=== PATIENT | female | born 1945 | race Caucasian/White ===

== ENCOUNTER 2016-05-08 06:22 | Day surgery (SDC) | payer MEDICARE ==
[2016-05-04 08:57] VITALS: BMI 32.3
--- NOTE | 2016-05-07 20:27 | P.HPOB ---
History of Present Illness H&P Date: 05/07/16 Chief Complaint: Postmenopausal bleeding, endometrial thickening This is a 61-year-old female 5 para 4 who presents for dilation and curettage with hysteroscopy secondary to postmenopausal bleeding. She began having some brown light spotting approximate 2 months ago. She denies any cramping or pelvic pain. The symptoms have been occurring normal daily. She denies any preceding event prior to the bleeding starting. She does state is exacerbated by physical activity. She denies any sexual activity. Her pelvic ultrasound showed a uterus measuring 6.3 x 3.3 x 3.8 cm with an endometrial thickness of 1.4 cm. Neither ovary was visualized. Obstetrical history: . History of 4 vaginal deliveries and 1 miscarriage. Gynecologic history: No history of sexually transmitted diseases. Onset of menses was at age 15-16 and menopause was at age 41. She did try was menopausal hormone replacement therapy but stopped it due to bleeding problems. Social history: She is . She denies any sexual activity currently. 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 Review of Systems Constitutional: Denies chills, Denies fever Ears, nose, mouth and throat: Denies headache, Denies sore throat Cardiovascular: Denies chest pain, Denies shortness of breath Respiratory: Denies cough Gastrointestinal: Denies abdominal pain, Denies diarrhea, Denies nausea, Denies vomiting Genitourinary: Reports abnormal vaginal bleeding, Denies pelvic pain Menstruation: Reports postmenopausal Musculoskeletal: Denies myalgias Integumentary: Denies pruritus, Denies rash Neurological: Denies numbness, Denies weakness Endocrine: Denies fatigue, Denies weight change Past Medical History Past Medical History: Hyperlipidemia, Hypertension Additional Past Medical History / Comment(s): post menopausal spotting,US showed uterus wall thickening,allergies causing sinus congestion History of Any Multi-Drug Resistant Organisms: None Reported Past Surgical History: Adenoidectomy, Bariatric Surgery (Lap band surgery 2011) , Hernia Repair (Hiatal hernia repair 2011), Joint Replacement, Tonsillectomy, Tubal Ligation Additional Past Surgical History / Comment(s): Minh knee replacements,Lap band- fill present, hiatal hernia repair. Nerve removal, left foot Past Anesthesia/Blood Transfusion Reactions: No Reported Reaction Additional Past Anesthesia/Blood Transfusion Reaction / Comment(s): no hx blood transfusion Past Psychological History: Depression (History) Smoking Status: Former smoker Past Alcohol Use History: None Reported Additional Past Alcohol Use History / Comment(s): quit smoking ,smoked approx 25 yrs 2ppd Past Drug Use History: None Reported - Past Family History Mother Additional Family Medical History / Comment(s): heart problems Father Family Medical History: Diabetes Mellitus Additional Family Medical History / Comment(s): aortic and groin aneurysm, diabetes in his 80's Brother(s) Additional Family Medical History / Comment(s): aortic aneurysm,MS Medications and Allergies Home Medications Medication Instructions Recorded Confirmed Type Cholecalciferol [Vitamin D3] 15,000 unit PO DAILY 05/04/16 05/04/16 History Montelukast Sodium [Singulair] 10 mg PO HS 05/04/16 05/04/16 History Simvastatin [Zocor] 20 mg PO HS 05/04/16 05/04/16 History Allergies Allergy/AdvReac Type Severity Reaction Status Date / Time No Known Allergies Allergy Verified 05/04/16 08:45 Exam Osteopathic Statement: *. No significant issues noted on an osteopathic structural exam other than those noted in the History and Physical/Consult. HEENT: Within normal limits Heart: Regular rate and rhythm Lungs: Clear to auscultation bilaterally Abdomen: Soft, nontender Pelvic exam: Uterus is midposition, nontender, with no adnexal masses or tenderness palpated. There is a grade 1 rectocele noted. Extremities: Negative Homans. Assessment and Plan (1) Postmenopausal bleeding Status: Acute (2) Endometrial thickening on ultra sound Status: Acute Plan: Proceed with dilation and curettage with hysteroscopy. I have discussed the risks, benefits, and alternative therapies for the above- mentioned procedure and for both sedation/anesthesia as well as necessary blood products administration, if indicated, as they pertain to this patient. The patient has indicated her understanding and acceptance of the risks and procedures discussed.
[~2016-05-08 06:22] MED LIST: DEXAMETHASONE SOD PHOSPHATE 10 MG/ML 1 ML VIAL IV ONE; HYDROmorphone 1 MG/ML 1 ML SYRINGE IVP PRN; LACTATED RINGERS 1,000 ML IV SCH; LIDOCAINE 1% 20 ML VIAL (10MG/ML) FOR IV START INTRADERMA PRN; MIDAZOLAM 2 MG/2 ML VIAL IV PRN; ONDANSETRON 4 MG/2 ML VIAL IVP ONE; Pre Op ABX Message 1 EACH MISC MISCELLANE ONE
[2016-05-08] MEDS ORDERED: SUCCINYLCHOLINE CHLORIDE 100 MG/5 ML SYR IV ONE (07:32)
[2016-05-08] MEDS ORDERED: MIDAZOLAM 2 MG/2 ML VIAL ONE (07:32)
[2016-05-08] MEDS ORDERED: LIDOCAINE 1% INJ 10MG/ML (20 ML MDV) ONE (07:32)
[2016-05-08] MEDS ORDERED: fentaNYL (PF) 50 MCG/ML 2 ML AMP ONE (07:32)
[2016-05-08] MEDS ORDERED: PROPOFOL 10 MG/ML 20 ML VIAL IV ONE (07:32)
--- NOTE | 2016-05-08 07:58 | P.OP ---
Date of Procedure: 05/08/16 Preoperative Diagnosis: Postmenopausal bleeding, endometrial thickening Postoperative Diagnosis: Same Procedure(s) Performed: Hysteroscopy, dilation and curettage Anesthesia: GUANAKO Surgeon: Omayra Pathak Estimated Blood Loss (ml): 2 Pathology: other (Endometrial curettings) Condition: stable Disposition: same day Indications for Procedure: This is a 61-year-old female 5 para 4 who presents for dilation and curettage with hysteroscopy secondary to postmenopausal bleeding. She began having some brown light spotting approximate 2 months ago. She denies any cramping or pelvic pain. The symptoms have been occurring normal daily. She denies any preceding event prior to the bleeding starting. She does state is exacerbated by physical activity. She denies any sexual activity. Her pelvic ultrasound showed a uterus measuring 6.3 x 3.3 x 3.8 cm with an endometrial thickness of 1.4 cm. Neither ovary was visualized. Operative Findings: Uterus is retroverted, sounded to 8 cm. Cervix is sounded to 4 cm. Upon hysteroscopy, a thicker area is noted anteriorly consistent with either submucosal fibroid or small polyp. Relative atrophic endometrial pattern is noted otherwise. Scant endometrial curettings are obtained. Description of Procedure: The patient is taken the operating room where she is placed in the dorsal lithotomy position. She is prepped and draped in the normal sterile fashion. Bladder is drained with a catheter and then removed. Pelvic exam is performed under anesthesia. Uterus is found to be retroverted with no adnexal masses palpated. Next a weighted speculum was placed in the patient's vagina and a right angle retractor was used to visualize the cervix. The anterior lip of the cervix is grasped with a single-tooth tenaculum. Cervix is sounded to 47 m. Uterus is sounded to 8 cm. Next the cervix is gently dilated with Llamas dilators until a hysteroscope could be passed. Hysteroscopy was performed using normal saline. Both tubal ostia are visualized. There is a slight thickening along the anterior border in a background of atrophic endometrium. This is consistent with either a small polyp versus a submucosal fibroid. Next the hysteroscope was withdrawn and the cervix is gently dilated further. A polyp forceps was introduced with minimal tissue obtained. Next a medium-size sharp curet was introduced and sharp curettage was performed until a gritty texture was noted. Minimal tissue was noted. Next the single-tooth tenaculum was removed. Minimal bleeding is noted. All other and Bob are removed from the vagina. All sponge and needle counts are correct. The patient is then taken to recovery room in stable condition.
[2016-05-08 08:12] VITALS: RESP 16; TEMP 97.4
[2016-05-08 08:31] VITALS: PULSE 61
[2016-05-08 08:38] VITALS: BP 160/90
[2016-05-08] MEDS ORDERED: IBUPROFEN 200 MG TAB PO ONE (09:16)
== END 2016-05-08 10:05 | disposition home or self-care (01) ==
LOC: OR 06:22
PROVIDERS: ATTEND Obstetrics & Gynecology
DX: N85.01 Benign endometrial hyperplasia (principal); N95.0 Postmenopausal bleeding; E78.5 Hyperlipidemia, unspecified; Z79.899 Other long term (current) drug therapy
CPT/HCPCS: 88305; 58558; J2250; J1100; J2405; J2001; J3010; J0330; J2704

== ENCOUNTER → 2017-06-11 | Outpatient (CLI) | payer MEDICARE ==
--- NOTE | 2017-06-13 09:13 | MM ---
Reason for exam: screening (asymptomatic). Last mammogram was performed 1 year and 6 months ago. History: Patient is postmenopausal. Took estrogen for 2 months beginning at age 43. Physical Findings: A clinical breast exam by your physician is recommended on an annual basis and results should be correlated with mammographic findings. MG Screening Mammo w CAD Bilateral CC and MLO view(s) were taken. Prior study comparison: December 07, 2015, bilateral MG 3d screening mammo w/cad. February 12, 2013, [facility] DIGITAL RIGHT MAMMOGRAM w/CAD. There are scattered fibroglandular densities. Chronic bilateral nipple retraction. No significant changes when compared with prior studies. ASSESSMENT: Negative, BI-RAD 1 RECOMMENDATION: Routine screening mammogram of both breasts in 1 year.
== END | disposition home or self-care (01) ==
LOC: RADMAMWWP 16:54
PROVIDERS: ATTEND Family Medicine
DX: Z12.31 Encounter for screening mammogram for malignant neoplasm of breast (principal)
CPT/HCPCS: 77067

== ENCOUNTER → 2018-09-13 | Outpatient (CLI) | payer MEDICARE ==
--- NOTE | 2018-09-13 09:09 | BD ---
EXAMINATION TYPE: Axial Bone Density DATE OF EXAM: 09/13/2018 COMPARISON: 12/07/2015 CLINICAL HISTORY: M 85.89 Height: 65 IN Weight: 220 LBS FRAX RISK QUESTIONS: History of Fracture in Adulthood: RT THUMB AGE 72 Secondary Osteoporosis: 3. Menopause before 45: YES AGE 43 RISK FACTORS HISTORY OF: Family History of Osteoporosis: MOTHER, Active: YES Diet low in dairy products/other sources of calcium: YES Postmenopausal woman: AGE 43 MEDICATIONS: Additional Medications: CALCIUM, VIT D, SINGULAIR, CHOLESTEROL MEDS EXAM MEASUREMENTS: Bone mineral densitometry was performed using the [employer] System. Bone mineral density as measured about the Lumbar spine is: ----- L1-L4(G/cm2): 1.059 T Score Values are as follows: ----- L2: -1.6 ----- L3: -1.0 ----- L4: -1.4 ----- L1-L4: -1.0 Bone mineral density has: Decreased -10.8% since study of: 12/07/2015 Bone mineral density about the R hip (g/cm2): 0.876 Bone mineral density about the L hip (g/cm2): 0.873 T Score values are as follows: -----R Neck: -1.2 -----L Neck: -1.2 -----R Total: -0.9 -----L Total: -0.6 Bone mineral density has: Decreased -7.2% since study of: 12/07/2015 IMPRESSION: Osteopenia (T Score between -2.5 and -1). There is slightly increased risk of fracture and the patient may be considered for treatment. Re-Screen 2-5 years. NOTE: T-SCORE=SD OF THE YOUNG ADULT MEAN.
--- NOTE | 2018-09-16 10:15 | MM ---
Reason for exam: screening (asymptomatic). Last mammogram was performed 1 year and 3 months ago. History: Patient is postmenopausal and history of other cancer. Took estrogen for 2 months beginning at age 43. Physical Findings: A clinical breast exam by your physician is recommended on an annual basis and results should be correlated with mammographic findings. MG Screening Mammo w CAD Bilateral CC and MLO view(s) were taken. Prior study comparison: June 11, 2017, bilateral MG screening mammo w CAD. December 07, 2015, bilateral MG 3d screening mammo w/cad. The breast tissue is almost entirely fat. There is no discrete abnormality. No significant changes when compared with prior studies. ASSESSMENT: Negative, BI-RAD 1 RECOMMENDATION: Routine screening mammogram of both breasts in 1 year.
== END | disposition home or self-care (01) ==
LOC: RADMAMWWP 07:46
PROVIDERS: ATTEND Family Medicine
DX: Z12.31 Encounter for screening mammogram for malignant neoplasm of breast (principal); M85.80 Other specified disorders of bone density and structure, unspecified site; E55.9 Vitamin D deficiency, unspecified
CPT/HCPCS: 77067; 77080

== ENCOUNTER 2018-12-14 12:38 | Emergency (ER) | payer MEDICARE ==
[2018-12-14 12:55] VITALS: PULSE 64; RESP 18; TEMP 98
--- NOTE | 2018-12-14 13:38 | ED ---
Lower Extremity Injury HPI - General Chief Complaint: Extremity Injury, Lower Stated Complaint: RT HEEL PAIN, LUMP Time Seen by Provider: 12/14/18 13:08 Source: patient, RN notes reviewed Mode of arrival: ambulatory Limitations: no limitations - History of Present Illness Initial Comments: This a 73-year-old female presents emergency Department chief complaint right heel pain. Patient states that she is had some discomfort over her foot and heel region. Days but states today she cannot bear any weight. She noticed that there is swelling on her right posterior lateral portion of the heel. She states she had no known injury. Patient states it does come to the point where it is too painful to ambulate on it. No paresthesias no fevers chills. - Related Data Home Medications Medication Instructions Recorded Confirmed Cholecalciferol [Vitamin D3] 15,000 unit PO DAILY 05/04/16 05/08/16 Montelukast Sodium [Singulair] 10 mg PO HS 05/04/16 05/08/16 Simvastatin [Zocor] 20 mg PO HS 05/04/16 05/08/16 Previous Rx's Medication Instructions Recorded Ibuprofen [Motrin] 600 mg PO Q8HR PRN #30 tab 12/14/18 amLODIPine BESYLATE [Norvasc] 5 mg PO DAILY #14 tablet 12/14/18 Allergies Allergy/AdvReac Type Severity Reaction Status Date / Time No Known Allergies Allergy Verified 12/14/18 12:51 Review of Systems ROS Statement: Those systems with pertinent positive or pertinent negative responses have been documented in the HPI. ROS Other: All systems not noted in ROS Statement are negative. Past Medical History Past Medical History: Hyperlipidemia, Hypertension Additional Past Medical History / Comment(s): post menopausal spotting,US showed uterus wall thickening,allergies causing sinus congestion History of Any Multi-Drug Resistant Organisms: None Reported Past Surgical History: Adenoidectomy, Bariatric Surgery, Hernia Repair, Joint Replacement, Tonsillectomy, Tubal Ligation Additional Past Surgical History / Comment(s): Minh knee replacements,Lap band- fill present, hiatal hernia repair. Nerve removal, left foot Past Anesthesia/Blood Transfusion Reactions: No Reported Reaction Additional Past Anesthesia/Blood Transfusion Reaction / Comment(s): no hx blood transfusion Past Psychological History: No Psychological Hx Reported, Depression Smoking Status: Former smoker Past Alcohol Use History: None Reported Past Drug Use History: None Reported - Past Family History Mother Additional Family Medical History / Comment(s): heart problems Father Family Medical History: Diabetes Mellitus Additional Family Medical History / Comment(s): aortic and groin an eurysm,diabetes in his 80's Brother(s) Additional Family Medical History / Comment(s): aortic aneurysm,MS General Exam Limitations: no limitations General appearance: alert, in no apparent distress Head exam: Present: atraumatic, normocephalic, normal inspection Respiratory exam: Present: normal lung sounds bilaterally. Absent: respiratory distress, wheezes, rales, rhonchi, stridor Cardiovascular Exam: Present: regular rate, normal rhythm, normal heart sounds. Absent: systolic murmur, diastolic murmur, rubs, gallop, clicks Extremities exam: Present: other (Right foot, heel region there is an area approximately 1 cm and swelling, severely tender with palpation, full range of motion neurovascular intact) Neurological exam: Present: alert, oriented X3 Skin exam: Present: warm, dry, intact, normal color. Absent: rash Course Vital Signs 12/14/18 12/14/18 12:52 14:15 Temperature 98 F Pulse Rate 64 64 Respiratory 18 18 Rate Blood Pressure 206/102 187/100 O2 Sat by Pulse 98 96 Oximetry Medical Decision Making - Medical Decision Making X-rays obtained of the right heel there is found to be a large heel spur, calcification. Patient's symptoms are consistent with tendinitis, heel spur. Patient will follow-up with orthopedics. Patient also found to be hypertensive multiple blood pressures performed. Patient has been on blood pressure medication the past will be restarted on Norvasc at this time. Disposition Clinical Impression: Hypertension, Heel spur Disposition: HOME SELF-CARE Condition: Stable Instructions (If sedation given, give patient instructions): Heel Spur (ED), Hypertension (ED) Additional Instructions: Please return to the Emergency Department if symptoms worsen or any other concerns. Prescriptions: Ibuprofen [Motrin] 600 mg PO Q8HR PRN #30 tab PRN Reason: Pain amLODIPine BESYLATE [Norvasc] 5 mg PO DAILY #14 tablet Is patient prescribed a controlled substance at d/c from ED?: No Referrals: Sandra Shi MD [Primary Care Provider] - 1-2 days Jacob Lora MD [Medical Doctor] - 1-2 days Time of Disposition: 14:25
--- NOTE | 2018-12-14 14:05 | XR ---
EXAMINATION TYPE: XR calcaneus 2V RT , 2 VIEWS DATE OF EXAM ORDERED: 12/14/2018 HISTORY: pain, swelling, mass. COMPARISON: None. FINDINGS: There are both Achilles and plantar calcaneal spurs. No calcaneal fracture is seen. Boehle r's angle is maintained. No ankle joint effusion is seen. IMPRESSION: 1. NO ACUTE CALCANEAL FRACTURE. 2. CALCANEAL SPURS.
[2018-12-14 14:17] VITALS: BP 187/100
[2018-12-14] MEDS ORDERED: amLODIPine 5 MG TAB PO STA (14:20)
[2018-12-14] MEDS ORDERED: ACET/COD 300 MG/30 MG STARTER PACK 6 TAB BTL PO STA (14:25)
== END 2018-12-14 15:01 | disposition home or self-care (01) ==
LOC: EC 12:38
DX: M77.31 Calcaneal spur, right foot (principal); I10 Essential (primary) hypertension; E78.5 Hyperlipidemia, unspecified; Z87.891 Personal history of nicotine dependence; Z79.899 Other long term (current) drug therapy; Z91.048 Other nonmedicinal substance allergy status; Z82.49 Family history of ischemic heart disease and other diseases of the circulatory system
CPT/HCPCS: 99283

== ENCOUNTER → 2019-02-18 | Outpatient (CLI) | payer MEDICARE ==
--- NOTE | 2019-02-18 14:59 | P.BASOAP ---
Subjective Progress Note Date: 02/18/19 Principal diagnosis: Epigastric pain, vomiting 73-year-old female known to our service. Has been following up with us at [facility]. Patient had her band emptied in October. Still having upper abdominal pain. Vomiting is resolved however. She has gained 15 pounds since last visit. Patient remains interested in band removal. Objective - Exam Abdomen: Soft, nontender, nondistended Assessment/Plan (1) Morbid obesity Narrative/Plan: 73-year-old female status post lap band placement with intractable vomiting and epigastric pain. Some of her symptoms are improved after emptying her band. She remains interested and band removal. Band removal considered medically necessary at this time. We'll tentatively schedule for band removal at this ti ok. Not interested in conversion currently. Risks of bleeding, infection, abscess, leak, weight gain, persistent pain, persistent nausea and vomiting, reflux, findings of gastric erosion, need for laparotomy, fistula reviewed. She understands and wishes to proceed. Plan: Date: Initial Weight: Initial BMI: Current Weight: Current BMI: Type of Surgery: Total Volume in Band: Previous Volume: Volume Removed: Volume Added: Band Size:
[2019-02-18 15:50] VITALS: BP 141/91; PULSE 83; TEMP 98.4; BMI 38.2
== END | disposition home or self-care (01) ==
LOC: BARWHC3 14:01
PROVIDERS: ATTEND Surgery
DX: E66.01 Morbid (severe) obesity due to excess calories (principal); K95.09 Other complications of gastric band procedure; R10.13 Epigastric pain; R11.10 Vomiting, unspecified; Z98.84 Bariatric surgery status; Z68.38 Body mass index [BMI] 38.0-38.9, adult
CPT/HCPCS: 99211

== ENCOUNTER → 2019-03-05 | Outpatient (CLI) | payer MEDICARE ==
[2019-03-05 13:06] LABS: Calcium 10.1 mg/dL (8.4-10.2); Potassium 4.2 mmol/L (3.5-5.1); Total Bilirubin 0.6 mg/dL (0.2-1.3); Total Protein 7.2 g/dL (6.3-8.2)
[2019-03-05 13:17] LABS: Basophils % (A) 0 %; Eosinophils # (A) 0.2 k/uL (0-0.7); Eosinophils % (A) 4 %; HCT 43.2 % (34.0-46.0); HGB 13.7 gm/dL (11.4-16.0); Lymphocytes # (A) 1.7 k/uL (1.0-4.8); Lymphocytes % (A) 28 %; MCHC 31.8 g/dL (31.0-37.0); MCV 91.2 fL (80.0-100.0); Mean Platelet Volume 7.8; Monocytes # (A) 0.4 k/uL (0-1.0); Monocytes % (A) 7 %; Neutrophils # (A) 3.4 k/uL (1.3-7.7); Neutrophils % (A) 59 %; Platelet Count 264 k/uL (150-450); RBC 4.74 m/uL (3.80-5.40); RDW 13.5 % (11.5-15.5); WBC 5.8 k/uL (3.8-10.6)
== END | disposition home or self-care (01) ==
LOC: LABPAT 12:25
PROVIDERS: ATTEND Surgery
DX: Z01.818 Encounter for other preprocedural examination (principal); Z01.812 Encounter for preprocedural laboratory examination
CPT/HCPCS: 36415; 80053; 85025; 93005

== ENCOUNTER 2019-03-21 08:59 | Day surgery (SDC) | payer MEDICARE ==
[2019-03-18 14:22] VITALS: BMI 38.5
--- NOTE | 2019-03-21 07:53 | P.GSHP ---
History of Present Illness H&P Date: 03/21/19 Chief Complaint: GERD, abdominal pain, vomiting Patient seen recently in the bariatric clinic. Patient had her band emptied last fall. Prior that was vomiting frequently. Since then emesis is less frequent. Still has reflux. Still has pain upper abdomen near the port site at times. She is interested in band removal. She is not interested in conversion to alternative bariatric procedure. Past Medical History Past Medical History: Hyperlipidemia, Hypertension Additional Past Medical History / Comment(s): 2014: post menopausal spotting, allergies causing sinus congestion History of Any Multi-Drug Resistant Organisms: None Reported Past Surgical History: Adenoidectomy, Bariatric Surgery, Hernia Repair, Joint Replacement, Tonsillectomy, Tubal Ligation Additional Past Surgical History / Comment(s): Minh knee replacements,Lap band 2011 (Dr. Farrell) currently empty as of 02/18/19, hiatal hernia repair. Nerve removal left foot , 2013:[facility] Past Anesthesia/Blood Transfusion Reactions: No Reported Reaction Additional Past Anesthesia/Blood Transfusion Reaction / Comment(s): no hx blood transfusion Smoking Status: Former smoker - Past Family History Father Family Medical History: Diabetes Mellitus Brother(s) Additional Family Medical History / Comment(s): abdominal aortic aneurysm,MS Medications and Allergies Home Medications Medication Instructions Recorded Confirmed Type Cholecalciferol [Vitamin D3] 5,000 unit PO DAILY 05/04/16 03/18/19 History Montelukast Sodium [Singulair] 10 mg PO HS 05/04/16 03/18/19 History Simvastatin [Zocor] 20 mg PO HS 05/04/16 03/18/19 History Calcium Carbonate [Calcium] 600 mg PO DAILY 03/18/19 03/18/19 History Losartan-Hctz 50-12.5 mg [Hyzaar 1 tab PO DAILY 03/18/19 03/18/19 History 50-12.5] Allergies Allergy/AdvReac Type Severity Reaction Status Date / Time No Known Allergies Allergy Verified 03/18/19 14:17 Surgical - Exam Physical exam: General: Well-developed, well-nourished HEENT: Normocephalic, sclerae nonicteric Abdomen: Nontender, nondistended Extremities: No edema Neuro: Alert and oriented Assessment and Plan (1) Morbid obesity Narrative/Plan: Will proceed with laparoscopic lap band removal at this time. Risks of bleedi ng, infection, gastric perforation, findings of erosion, conversion to an open procedure, persistent GERD, persistent vomiting and dysphagia reviewed. She understands and wishes to proceed. Status: Acute Code(s): E66.01 - MORBID (SEVERE) OBESITY DUE TO EXCESS CALORIES SNOMED Code(s): 519860215
[~2019-03-21 08:59] MED LIST changes: -DEXAMETHASONE SOD PHOSPHATE 10 MG/ML 1 ML VIAL IV ONE; +HYDROmorphone 0.5 MG/0.5 ML SYRINGE IVP PRN; -HYDROmorphone 1 MG/ML 1 ML SYRINGE IVP PRN; -LIDOCAINE 1% 20 ML VIAL (10MG/ML) FOR IV START INTRADERMA PRN; -MIDAZOLAM 2 MG/2 ML VIAL IV PRN; -ONDANSETRON 4 MG/2 ML VIAL IVP ONE; -Pre Op ABX Message 1 EACH MISC MISCELLANE ONE; +fentaNYL (PF) 50 MCG/ML 2 ML AMP IV PRN
[2019-03-21] MEDS ORDERED: BUPIVACAINE (PF) 0.25% 30 ML VIAL SQ ONE ×2 (09:18→10:13)
[2019-03-21] MEDS ORDERED: LIDOCAINE 1% 20 ML VIAL (10MG/ML) FOR IV START INTRADERMA ONE (09:24)
[2019-03-21] MEDS ORDERED: ONDANSETRON 4 MG/2 ML VIAL IVP ONE (09:25)
[2019-03-21] MEDS ORDERED: LIDOCAINE 1% INJ 10MG/ML (20 ML MDV) ONE (09:30)
[2019-03-21] MEDS ORDERED: KETOROLAC 30 MG/ML 1 ML VIAL ONE (09:30)
[2019-03-21] MEDS ORDERED: MIDAZOLAM 2 MG/2 ML VIAL ONE (09:30)
[2019-03-21] MEDS ORDERED: SUCCINYLCHOLINE CHLORIDE 100 MG/5 ML SYR IV ONE (09:30)
[2019-03-21] MEDS ORDERED: ePHEDrine SULFATE/0.9% NACL/PF 50 MG/5 ML SYRINGE IV ONE (09:30)
[2019-03-21] MEDS ORDERED: HYDROmorphone (PF) 1 MG/ML ONE (09:30)
[2019-03-21] MEDS ORDERED: GLYCOPYRROLATE 0.2 MG/ML 2 ML VIAL ONE (09:30)
[2019-03-21] MEDS ORDERED: ROCURONIUM BROMIDE 10 MG/ML 5 ML VIAL IV ONE (09:30)
[2019-03-21] MEDS ORDERED: fentaNYL (PF) 50 MCG/ML 2 ML AMP ONE (09:30)
[2019-03-21] MEDS ORDERED: PHENYLEPHRINE-0.9% NACL SYG 1 MG/10 ML SYRINGE ONE (09:30)
[2019-03-21] MEDS ORDERED: NEOSTIGMINE 1 MG/ML 10 ML VIAL ONE (09:30)
[2019-03-21] MEDS ORDERED: PROPOFOL 10 MG/ML 20 ML VIAL IV ONE (09:30)
[2019-03-21] MEDS ORDERED: HEPARIN SODIUM,PORCINE 5,000 UNIT/ML 1 ML VIAL SQ ONE (09:40)
[2019-03-21 11:07] VITALS: TEMP 97.9
[2019-03-21] MEDS ORDERED: HYDROcodone/APAP 5-325MG 1 EACH TAB PO PRN (11:07)
[2019-03-21] MEDS ORDERED: NALOXONE 0.4 MG/ML 1 ML VIAL IV PRN (11:07)
--- NOTE | 2019-03-21 11:08 | P.OP ---
Date of Procedure: 03/21/19 Procedure(s) Performed: PREOPERATIVE DIAGNOSIS: Band intolerance/abdominal pain POSTOPERATIVE DIAGNOSIS: Same PROCEDURE: Laparoscopic lap band removal SURGEON: Bud EBL: Minimal ANESTHESIA: General COMPLICATIONS: None OPERATIVE PROCEDURE: The patient was brought and placed on the operating room table in the supine position. The patient was placed under general anesthesia at that time. The patient was then placed in lithotomy. The abdomen was prepped and draped in the usual sterile fashion. The previous port incision was localized and then incised using a scalpel. The port was easily excised using electrocautery. Entrance into the perineal cavity occurred using a 5 mm optical trocar through the old trocar entrance site. Insufflation took place to 15 mmHg. A right subxiphoid 5 mm trocar was placed. This was then removed and the medium Siobhan hook was used to elevate the left lobe of the liver anteriorly. An additional 5 mm trocar was placed under direct visualization in the left lateral upper quadrant. The original 5 mm trocar was switched to a 15 mm trocar. A additional 5 mm trocar was placed in the right upper quadrant under direct dilatation. There were adhesions to the band in the buccal that were lysed using both the LigaSure and electrocautery. The band was then cut using the laparoscopic piper. The band was then removed easily in 2 portions through the 15 mm trocar site. The stomach itself was inspected and revealed no evidence of erosion or prolapse. The trochars were removed. The fascia at the 15 mm site was closed using a [id number] 0 Vicryl stitch. The subcutaneous tissues at the port site was closed using a 3-0 Vicryl suture. The skin at all 4 incision sites were closed using 4-0 Monocryl sutures. Steri-Strips and sterile dressings were then applied. DISPOSITION: Stable to recovery room
[2019-03-21 12:14] VITALS: PULSE 61
[2019-03-21 12:28] VITALS: BP 124/80; RESP 16
[2019-03-21] MEDS ORDERED: ONDANSETRON ODT 4 MG TAB PO ONE (13:01)
== END 2019-03-21 13:16 | disposition home or self-care (01) ==
LOC: OR 08:59
PROVIDERS: ATTEND Surgery
DX: K95.09 Other complications of gastric band procedure (principal); K21.9 Gastro-esophageal reflux disease without esophagitis; E66.01 Morbid (severe) obesity due to excess calories; I10 Essential (primary) hypertension; E78.5 Hyperlipidemia, unspecified; Z79.899 Other long term (current) drug therapy; Z90.89 Acquired absence of other organs; Z96.653 Presence of artificial knee joint, bilateral; Z98.51 Tubal ligation status; Z98.890 Other specified postprocedural states; Z98.84 Bariatric surgery status; Z87.891 Personal history of nicotine dependence; Z83.3 Family history of diabetes mellitus; Z82.49 Family history of ischemic heart disease and other diseases of the circulatory system; Z68.38 Body mass index [BMI] 38.0-38.9, adult
CPT/HCPCS: 43774; J2250; J1644; J2710; J0690; J2405; J2001; J3010; J1885; J1170; J2370; J0330; J2704

== ENCOUNTER → 2019-04-01 | Outpatient (CLI) | payer MEDICARE ==
[2019-04-01 14:34] VITALS: BP 152/93; PULSE 58; RESP 16; TEMP 97.8; BMI 38.5
--- NOTE | 2019-04-01 16:23 | P.BASOAP ---
Subjective Progress Note Date: 04/01/19 Principal diagnosis: Morbid obesity Patient returns after recent laparoscopic lap band removal. Complaining of mild pain at port site. Also with some swelling there. Denies fevers. No drainage. Objective - Vital Signs Vital signs: Vital Signs Temp 97.8 F 04/01/19 14:31 Pulse 58 L 04/01/19 14:31 Resp 16 04/01/19 14:31 BP 152/93 04/01/19 14:31 Pulse Ox Intake & Output 03/31/19 04/01/19 04/01/19 18:59 06:59 18:59 Weight 108.409 kg - Exam Abdomen: Soft, nondistended, mild induration at the port site incision. Assessment/Plan (1) Morbid obesity Narrative/Plan: Patient doing relatively well. The patient's complaints of intermittent nausea and vomiting have improved. Still having mild discomfort. Continue to monitor her incision sites. Follow-up as needed. Plan: Date: 04/01/19 Initial Weight: 74.843 kg Initial BMI: 26.6 Current Weight: 108.409 kg Current BMI: 38.5 Type of Surgery: Total Volume in Band: Previous Volume: Volume Removed: Volume Added: Band Size:
== END | disposition home or self-care (01) ==
LOC: BARWHC3 14:08
PROVIDERS: ATTEND Surgery
DX: Z46.51 Encounter for fitting and adjustment of gastric lap band (principal); E66.01 Morbid (severe) obesity due to excess calories; Z68.38 Body mass index [BMI] 38.0-38.9, adult
CPT/HCPCS: 99211

== ENCOUNTER → 2019-09-15 | Outpatient (CLI) | payer MEDICARE ==
--- NOTE | 2019-09-15 14:28 | MM ---
Reason for exam: screening (asymptomatic). Last mammogram was performed 1 year ago. History: Patient is postmenopausal and history of other cancer. Took estrogen for 2 months beginning at age 43. Physical Findings: A clinical breast exam by your physician is recommended on an annual basis and results should be correlated with mammographic findings. MG Screening Mammo w CAD Bilateral CC and MLO view(s) were taken. Prior study comparison: September 13, 2018, bilateral MG screening mammo w CAD. June 11, 2017, bilateral MG screening mammo w CAD. There are scattered fibroglandular densities. There is no discrete abnormality. ASSESSMENT: Negative, BI-RAD 1 RECOMMENDATION: Routine screening mammogram of both breasts in 1 year.
== END | disposition home or self-care (01) ==
LOC: RADMAMWWP 09:49
PROVIDERS: ATTEND Family Medicine
DX: Z12.31 Encounter for screening mammogram for malignant neoplasm of breast (principal)
CPT/HCPCS: 77067

== ENCOUNTER → 2020-12-06 | Outpatient (CLI) | payer MEDICARE ==
--- NOTE | 2020-12-08 10:52 | MM ---
Reason for exam: screening (asymptomatic). Last mammogram was performed 1 year and 3 months ago. History: Patient is postmenopausal and has history of other cancer at age 70. Took estrogen for 2 months beginning at age 43. Physical Findings: A clinical breast exam by your physician is recommended on an annual basis and results should be correlated with mammographic findings. MG Screening Mammo w CAD Bilateral CC and MLO view(s) were taken. Prior study comparison: September 15, 2019, bilateral MG screening mammo w CAD. June 11, 2017, bilateral MG screening mammo w CAD. December 07, 2015, bilateral MG 3d screening mammo w/cad. There are scattered fibroglandular densities. No significant changes when compared with prior studies. ASSESSMENT: Benign, BI-RAD 2 RECOMMENDATION: Routine screening mammogram of both breasts in 1 year.
== END | disposition home or self-care (01) ==
LOC: RADMAMWWP 11:06
PROVIDERS: ATTEND Family Medicine
DX: Z12.31 Encounter for screening mammogram for malignant neoplasm of breast (principal); Z85.89 Personal history of malignant neoplasm of other organs and systems
CPT/HCPCS: 77067

== ENCOUNTER → 2023-09-19 | Outpatient (CLI) | payer MEDICARE | END | disposition home or self-care (01) | LOC: LABPRL 09:19 | PROVIDERS: ATTEND Family Medicine | DX: Z00.00 Encounter for general adult medical examination without abnormal findings (principal); I10 Essential (primary) hypertension; E55.9 Vitamin D deficiency, unspecified; E78.00 Pure hypercholesterolemia, unspecified | CPT/HCPCS: 80053; 80061; 82306; 83036; 85027 ==